=== PATIENT | male | born 1995 | race Caucasian/White ===

== ENCOUNTER 2017-04-17 22:28 | Emergency (ER) | payer OTHER ==
[2017-04-18] MEDS ORDERED: ONDANSETRON 4 MG TAB.RAPDIS PO ONE (00:23)
[2017-04-18] MEDS ORDERED: ACETAMINOPHEN 325 MG TABLET PO ONE (00:23)
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
[2017-04-18 02:07] VITALS: BP 111/54
== END 2017-04-18 02:08 | disposition home or self-care (01) ==
LOC: ER 22:28
DX: J02.9 Acute pharyngitis, unspecified (principal); F17.200 Nicotine dependence, unspecified, uncomplicated
CPT/HCPCS: 99284; 70360; S0119